=== PATIENT | male | born 1960 | race Hispanic/Latino ===

== ENCOUNTER 2017-01-31 12:53 | Emergency (ER) | payer OTHER ==
[2017-01-31] MEDS ORDERED: NACL 0.9% 1000 ML 1,000 ML ONE (13:06)
[2017-01-31] MEDS ORDERED: ZOFRAN ONE (13:06)
[2017-01-31] MEDS ORDERED: MORPHINE ONE ×2 (13:06)
[2017-01-31] MEDS: ZOFRAN IV ONE ×2 (13:10→15:35)
[2017-01-31] MEDS: NACL 0.9% 1000 ML 1,000 ML IV ONE (13:12)
[2017-01-31] MEDS: MORPHINE IV ONE (13:12)
--- NOTE | 2017-01-31 13:18 | Emergency Department Report ---
ED Upper Extremity Inj HPI - General Chief Complaint: Multiple Trauma Stated Complaint: LT THUMB CUT OFF Time Seen by Provider: 01/31/17 13:01 Source: patient Mode of arrival: Wheelchair Limitations: No Limitations - History of Present Illness Initial Comments: 56-year-old male with a history of "borderline diabetes" not on meds presents to the hospital with acute left thumb amputation. Patient is right-hand dominant. He was working on a deck with a skill saw and cut off the Distal portion of his left thumb above the DIP joint. Patient was unable to recover the distal amputated portion. Mild bleeding currently. Pain is severe in intensity worsen movement and palpation. Last tetanus 3 years ago. No other injury reported. - Related Data Allergies Allergy/AdvReac Type Severity Reaction Status Date / Time codeine Allergy Unknown Verified 01/31/17 13:14 hydrocodone Allergy Unknown Verified 01/31/17 13:14 ED Review of Systems ROS: Stated complaint: LT THUMB CUT OFF Other details as noted in HPI Comment: All other systems reviewed and negative Other: Constitutional: No fevers chills Eyes: No eye pain visual changes ENT: No ear pain or throat pain Neck: Denies pain Respiratory: Denies cough wheezing shortness of breath Cardiovascular: Denies chest pain, palpitations, syncope GI: Denies abdominal pain, nausea, vomiting, diarrhea : Denies dysuria Musculoskeletal: As per HPI Skin: Denies rash, lesions, erythema Neurologic: Denies headache, numbness, weakness Psychiatric: Denies suicidal ideation, hallucinations ED Past Medical Hx - Past Medical History Previous Medical History?: Yes Hx Diabetes: Yes - Surgical History Past Surgical History?: No - Social History Smoking Status: Current Every Day Smoker Substance Use Type: None ED Physical Exam - General Limitations: No Limitations - Other Other exam information: General: No limitations, patient is alert in no acute distress Head exam: Atraumatic, normocephalic Eyes exam: Normal appearance, pupils equal reactive to light, extraocular movements intact ENT: Moist mucous membrane, normal oropharynx Neck exam: Normal inspection, full range of motion, no meningismus nontender Respiratory exam: Clear to auscultation bilateral, no wheezes, rales, crackles Cardiovascular: Normal rate and rhythm, normal heart sounds Abdomen: Soft, nondistended, and nontender, with normal bowel sounds, no rebound, or guarding Extremity: Left thumb amputation distal to DIP joint, minimal active bleeding. 2+ radial pulse. Full range of motion proximal to the injury Back: Normal Inspection, full range of motion, no tenderness Neurologic: Alert, oriented x3, cranial nerves intact, no motor or sensory deficit Psychiatric: normal affect, normal mood Skin: Warm, dry, intact ED Course Vital Signs 01/31/17 01/31/17 01/31/17 13:01 13:42 15:35 Temperature 98.0 F Pulse Rate 63 Respiratory 16 16 14 Rate Blood Pressure 107/80 Blood Pressure [Left] O2 Sat by Pulse Oximetry 01/31/17 17:14 Temperature Pulse Rate 79 Respiratory 18 Rate Blood Pressure Blood Pressure 123/80 [Left] O2 Sat by Pulse 95 Oximetry - Reevaluation(s) Reevaluation #1: 01/31/17 14:55 Patient receiving morphine, normal saline bolus, Zofran, and Ancef in the ED. Tetanus was up to date 01/31/17 14:55 - Consultations Consultation #1: 01/31/17 14:32 [facility] paged and returned call at this time. They do not have any hand coverage. I am awaiting call back from [facility] at this time. Consultation #2: 01/31/17 14:[address] Alvarado with plastics at [facility]. Recommend transfer secondary to bone exposure for possible revision to minimize exposed bone. It is unlikely that the distal portion can be reattached but will be sent with the patient. ED Medical Decision Making - Radiology Data Radiology results: report reviewed (left hand x-ray: amputation and fracture of the left distal phalanx (thumb)) - Medical Decision Making Friend brought the amputated fingertip approximate 1 hour after patient arrival. The fingertip was soaking in ice and milk. This distal portion was removed from that mixture and irrigated with normal saline. Tip was placed in a plastic bag then placing ice to be sent with the patient. I believe is unlikely that this finger will be reattached. Patient will be sent to [facility] for further treatment to minimize expose bone and therefore decrease risk of subsequent osteomyelitis in the future. Amputated finger in the ED was soaked and irrigated in one half Betadine and saline mixture. - Differential Diagnosis amputation, fracture Critical Care Time: No Critical care attestation.: If time is entered above; I have spent that time in minutes in the direct care of this critically ill patient, excluding procedure time. ED Disposition Clinical Impression: Finger amputation, traumatic Disposition: [id number] ANOTHER TYPE [facility]ARE Is pt being admited?: No Condition: Stable Referrals: PRIMARY CARE, [Primary Care Provider] - 3-5 Days Time of Disposition: 14:58 (accepted by trauma attending Dr. Alvarado for transfer to [facility])
[2017-01-31] MEDS: NACL 0.9% IR ONE (13:20)
[2017-01-31] MEDS: ANCEF/NS 1 GM/50 ML 1 GM/50 ML BAG IV ONE (13:20)
--- NOTE | 2017-01-31 13:38 | XRay Report ---
FINAL REPORT EXAM: XR FINGER(S) 2 RT HISTORY: amputation of the rt 1st digit TECHNIQUE: Single-view right hand. Two views right 1st finger. PRIORS: None currently available. FINDINGS: Comminuted fracture at the 1st distal phalanx with amputation identified. Minimal displacement of the remaining fragments noted. Possible intra-articular extension. No other fracture. There is no acute dislocation. Mild degenerative arthrosis at the 1st MCP joint. There is no cortical destruction to suggest osteomyelitis. There are no suspicious osseous lesions. There are no radiopaque foreign objects. IMPRESSION: Amputation fracture at the 1st distal phalanx.
[2017-01-31] MEDS ORDERED: BETADINE TP SCH (14:00)
[2017-01-31] MEDS: DILAUDID IV ONE (15:35)
[2017-01-31 17:16] VITALS: BP 123/80
== END 2017-01-31 17:13 | disposition other institution (70) ==
LOC: ED 12:53
DX: S68.012A Complete traumatic metacarpophalangeal amputation of left thumb, initial encounter (principal); E11.9 Type 2 diabetes mellitus without complications; F17.200 Nicotine dependence, unspecified, uncomplicated; X58.XXXA Exposure to other specified factors, initial encounter; Y93.9 Activity, unspecified; Y92.9 Unspecified place or not applicable; Y99.9 Unspecified external cause status
CPT/HCPCS: 73140; 82962; 96365; 96366; 96375; 96376; 99285; J0690; J1170; J2270; J2405; J7030